=== PATIENT | male | born 1955 | race Caucasian/White ===

== ENCOUNTER 2016-09-07 23:33 | Emergency (ER) | payer SELFPAY ==
[~2016-09-07] VITALS: Ht 190.5 cm; Wt 113.7 kg
[~2016-09-07 23:33] MED LIST: ACTOS30 MG PO; LIPITOR20 MG PO; LOTREL 10/21 CAPSULE PO
[2016-09-08 00:31] LABS: ADD MIUA? YES; BILIRUBIN NEGATIVE; BLOOD LARGE; COLOR YELLOW ((YELLOW)); GLUCOSE (STRIP) 100; KETONES NEGATIVE; LEUKOCYTES MODERATE; NITRITE NEGATIVE; PROTEIN (STRIP) 30
[2016-09-08 01:03] LABS: HEMATOCRIT 38.8 % (38.0-50.0); MCH 34.3 PG (29.0-34.0); MCHC 34.3 G/DL (30.0-36.0); MEAN PLAT.VOLUME 11.6 uM^3 (9.0-12.4); PLATELET COUNT 175 K/uL (156-360); RBC DIS.WIDTH-CV 13.8 % (11.8-14.6); RBC DIS.WIDTH-SD 48.6 % (39-53); RED BLOOD COUNT 3.88 M/uL (4.00-5.50)
[2016-09-08 01:04] LABS: BACTERIA 2+; CASTS NONE SEEN /LPF; CRYSTALS NONE SEEN; EPITHELIAL CELLS 1+; MUCUS NONE SEEN; RED BLOOD CELLS TNTC /HPF (0-5); UCUL ADDED? YES; WHITE BLOOD CELLS TNTC /HPF (0-5)
[2016-09-08 01:11] LABS: CHLORIDE 107 mEq/L (99-109); POTASSIUM 4.8 mEq/L (3.7-5.4); SODIUM 139 mEq/L (136-147)
[2016-09-08 01:13] LABS: GLUCOSE 213 mg/dL (70-99)
[2016-09-08 01:14] LABS: ANION GAP 10 MEQ/L (2-14)
[2016-09-08 01:16] LABS: GFR ESTIMATE (CALCULATED) 54 mL/min/
[2016-09-08 01:17] LABS: UREA NITROGEN (BUN) 25 mg/dL (9-23)
[2016-09-08] MEDS ORDERED: CIPRO500 MG PO (01:28)
[2016-09-08 01:42] VITALS: BP 157/85
== END 2016-09-08 01:56 | disposition home or self-care (01) ==
LOC: EME 23:33
DX: N39.0 Urinary tract infection, site not specified (principal); N30.00 Acute cystitis without hematuria; Z87.440 Personal history of urinary (tract) infections; E11.9 Type 2 diabetes mellitus without complications; E78.5 Hyperlipidemia, unspecified; I10 Essential (primary) hypertension
CPT/HCPCS: 80048; 81003; 85027; 87077; 87086; 87186; 99281; 99284